=== PATIENT | female | born 1975 | race Caucasian/White ===

== ENCOUNTER 2019-02-25 17:31 | Emergency (ER) | payer MEDICAID ==
[2019-02-25 18:54] LABS: HCG,QUALITATIVE URINE POSITIVE (NEGATIVE)
[2019-02-25 19:00] LABS: SQUAMOUS EPITHIAL < 1 /hpf (0-5); URINE BILIRUBIN NEGATIVE (NEGATIVE); URINE BLOOD NEGATIVE (NEGATIVE); URINE CLARITY Clear (Clear); URINE COLOR Yellow (YELLOW); URINE GLUCOSE (UA) NORMAL (Normal); URINE LEUKOCYTE ESTERASE NEG Leu/uL (Negative); URINE PROTEIN NEGATIVE (NEGATIVE); URINE UROBILINOGEN NORMAL mg/dL (0.2-1.0)
[2019-02-25] MEDS ORDERED: Sodium Chloride 0.9% 1,000 ML IV ONE (19:09)
[2019-02-25 19:21] LABS: BASO % 0.5 % (0.0-2.0); EOS # 0.1 K/uL (0.0-0.7); HEMOGLOBIN 12.7 g/dL (11.0-16.0); LYMPH # 1.9 K/uL (1.0-4.3); LYMPH % 36.7 % (20.0-40.0); MEAN CELL VOLUME 85.5 fL (81.0-99.0); MEAN CORPUSCULAR HEMOGLOBIN 28.9 pg (27.0-31.0); MEAN CORPUSCULAR HGB CONC 33.7 g/dL (33.0-37.0); MEAN PLATELET VOLUME 9.7 fL (7.2-11.7); MONO # 0.3 K/uL (0.0-0.8); MONO % 6.2 % (0.0-10.0); NEUT # 2.8 K/uL (1.8-7.0); NEUT % 54.6 % (50.0-75.0); RBC 4.39 Mil/uL (3.80-5.20); RED CELL DISTRIBUTION WIDTH 13.2 % (11.5-14.5); WHITE BLOOD COUNT 5.1 K/uL (4.8-10.8)
[2019-02-25] MEDS ORDERED: Sodium Chloride 0.9% 1,000 ML ONE (19:23)
[2019-02-25 19:33] LABS: ALB/GLOB RATIO 1.8 (1.0-2.1); ALBUMIN 4.9 g/dL (3.5-5.0); ALT/SGPT 15 U/L (9-52); AST/SGOT 19 U/L (14-36); BLOOD UREA NITROGEN 14 mg/dL (7-17); CALCIUM 9.4 mg/dl (8.6-10.4); GFR NON-AFRICAN AMERICAN > 60; LIPASE 132 U/L (23-300)
--- NOTE | 2019-02-25 19:57 | C.PDOC ---
History Of Present Illness 43 year old female with PMHx of Hypothyroidism and sleep apnea presents to the ED complaining of vomiting for 6 days. Reports occasional diarrhea and 2 episodes of vomiting everyday. Denies any headache, fever, chills, chest pain, abdominal pain, back pain, or urinary symptoms. States she was diagnosed with H. pylori but has not been able to do the tests because of the vomiting. Time Seen by Provider: 02/25/19 18:47 Chief Complaint (Nursing): GI Problem History Per: Patient History/Exam Limitations: no limitations Onset/Duration Of Symptoms: Days Current Symptoms Are (Timing): Still Present Associated Symptoms: Nausea, Vomiting, Diarrhea. denies: Fever, Chills, Back Pain, Chest Pain, Urinary Symptoms Past Medical History Reviewed: Historical Data, Nursing Documentation, Vital Signs Vital Signs: Last Vital Signs Temp 97.8 F 02/25/19 17:35 Pulse 92 H 02/25/19 17:35 Resp 20 02/25/19 17:35 BP 111/70 02/25/19 17:35 Pulse Ox 10 L 02/25/19 17:35 - Medical History PMH: Hypothyroidism Surgical History: Family History: States: No Known Family Hx - Social History Hx Alcohol Use: No Hx Substance Use: No - Immunization History Hx Tetanus Toxoid Vaccination: No Hx Influenza Vaccination: Yes Hx Pneumococcal Vaccination: Yes Review Of Systems Except As Marked, All Systems Reviewed And Found Negative. Constitutional: Negative for: Fever, Chills Cardiovascular: Negative for: Chest Pain Respiratory: Negative for: Shortness of Breath Gastrointestinal: Positive for: Nausea, Vomiting, Diarrhea. Negative for: Abdominal Pain Genitourinary: Negative for: Dysuria, Hematuria Musculoskeletal: Negative for: Back Pain Neurological: Negative for: Headache Physical Exam - Physical Exam Appears: Non-toxic, No Acute Distress Skin: Warm, Dry, No Rash Head: Atraumatic Eye(s): bilateral: Normal Inspection Nose: Normal Oral Mucosa: Moist Neck: Supple Chest: Symmetrical Cardiovascular: Rhythm Regular Respiratory: Normal Breath Sounds, No Rales, No Rhonchi, No Wheezing Gastrointestinal/Abdominal: Soft, No Tenderness, No Distention, No Guarding, No Rebound Neurological/Psych: Oriented x3, Normal Speech Gait: Steady ED Course And Treatment - Laboratory Results Result Diagrams: 02/25/19 19:18 02/25/19 19:18 Lab Results: Total Bilirubin 0.2 mg/dL (0.2-1.3) 02/25/19 19:18 AST 19 U/L (14-36) 02/25/19 19:18 ALT 15 U/L (9-52) 02/25/19 19:18 Alkaline Phosphatase 49 U/L (38-126) 02/25/19 19:18 Total Protein 7.7 g/dL (6.3-8.3) 02/25/19 19:18 Albumin 4.9 g/dL (3.5-5.0) 02/25/19 19:18 Globulin 2.8 gm/dL (2.2-3.9) 02/25/19 19:18 Albumin/Globulin Ratio 1.8 (1.0-2.1) 02/25/19 19:18 Lipase 132 U/L (23-300) 02/25/19 19:18 Urine Color Yellow (YELLOW) 02/25/19 18:46 Urine Clarity Clear (Clear) 02/25/19 18:46 Urine pH 5.0 (5.0-8.0) 02/25/19 18:46 Ur Specific [place] 1.017 (1.003-1.030) 02/25/19 18:46 Urine Protein Negative mg/dL (NEGATIVE) 02/25/19 18:46 Urine Glucose (UA) Normal mg/dL (Normal) 02/25/19 18:46 Urine Ketones Negative mg/dL (NEGATIVE) 02/25/19 18:46 Urine Blood Negative (NEGATIVE) 02/25/19 18:46 Urine Nitrate Negative (NEGATIVE) 02/25/19 18:46 Urine Bilirubin Negative (NEGATIVE) 02/25/19 18:46 Urine Urobilinogen Normal mg/dL (0.2-1.0) 02/25/19 18:46 Ur Leukocyte Esterase Neg Manisha/uL (Negative) 02/25/19 18:46 Urine WBC (Auto) < 1 /hpf (0-5) 02/25/19 18:46 Ur Squamous Epith Cells < 1 /hpf (0-5) 02/25/19 18:46 Urine HCG, Qual Positive (NEGATIVE) 02/25/19 18:46 Urine HCG, Qual Positive (NEGATIVE) 02/25/19 18:46 O2 Sat by Pulse Oximetry: 10 Medical Decision Making Medical Decision Making: Plan - IV fluids - UA - HCG Urine - Bloodwork Disposition Counseled Patient/Family Regarding: Studies Performed, Diagnosis - Disposition Disposition: HOME/ ROUTINE Disposition Time: 20:28 Condition: STABLE Prescriptions: Ondansetron ODT [Zofran ODT] 4 mg PO TID #12 odt Instructions: Stomach Pain in Early Forms: [facility] (Sami), General Discharge Instructions - POA Present On Arrival: None - Clinical Impression Clinical Impression: Gastritis, Vomiting, First trimester - Scribe Statement The provider has reviewed the documentation as recorded by the Scribe Joy Navas All medical record entries made by the Scribe were at my direction and personally dictated by me. I have reviewed the chart and agree that the record accurately reflects my personal performance of the history, physical exam, medical decision making, and the department course for this patient. I have also personally directed, reviewed, and agree with the discharge instructions and disposition.
[2019-02-25 20:37] VITALS: BP 108/75; PULSE 72; RESP 18; TEMP 98.3; O2SAT 100
== END 2019-02-25 20:37 | disposition home or self-care (01) ==
LOC: C.ER 17:31
DX: O99.611 Diseases of the digestive system complicating pregnancy, first trimester (principal); K29.70 Gastritis, unspecified, without bleeding; O21.9 Vomiting of pregnancy, unspecified; Z3A.00 Weeks of gestation of pregnancy not specified
CPT/HCPCS: 80053; 81001; 83690; 84702; 84703; 85025; 96360; 99285; J7030

== ENCOUNTER 2019-03-30 16:13 | Emergency (ER) | payer MEDICAID ==
[2019-03-30 16:13] VITALS: BMI 35.2
--- NOTE | 2019-03-30 19:05 | C.PDOC ---
History Of Present Illness 43 year old female who is currently 11 weeks presents to the ED complaining of right foot and ankle pain and swelling status post tripping and falling. Reports she tripped and fell. Denies any LOC, head injury, nausea, vomiting, weakness, numbness, headache, or dizziness. Time Seen by Provider: 03/30/19 16:40 Chief Complaint (Nursing): Lower Extremity Problem/Injury History Per: Patient History/Exam Limitations: no limitations Onset/Duration Of Symptoms: Hrs Current Symptoms Are (Timing): Still Present - Ankle/Foot Description Of Injury: Fell Past Medical History Reviewed: Historical Data, Nursing Documentation, Vital Signs Vital Signs: Last Vital Signs Temp 98.9 F 03/30/19 16:22 Pulse 92 H 03/30/19 16:22 Resp 18 03/30/19 16:22 BP 116/83 03/30/19 16:22 Pulse Ox 100 03/30/19 16:22 Primary Care Provider: Non [facility] Provider, - Medical History PMH: Hypothyroidism Surgical History: Family History: States: No Known Family Hx - Social History Hx Alcohol Use: No Hx Substance Use: No - Immunization History Hx Tetanus Toxoid Vaccination: No Hx Influenza Vaccination: Yes Hx Pneumococcal Vaccination: Yes Review Of Systems Except As Marked, All Systems Reviewed And Found Negative. Constitutional: Negative for: Fever, Chills Gastrointestinal: Negative for: Nausea, Vomiting Musculoskeletal: Positive for: Foot Pain (right), Other (right ankle pain) Neurological: Negative for: Weakness, Numbness, Headache, Dizziness Physical Exam - Physical Exam Appears: Non-toxic, No Acute Distress Skin: Warm, Dry Head: Normacephalic Eye(s): bilateral: Normal Inspection Oral Mucosa: Moist Neck: Supple Chest: Symmetrical Cardiovascular: Rhythm Regular Respiratory: Normal Breath Sounds, No Rales, No Rhonchi, No Wheezing Extremity: Tenderness (tenderness to right lateral and medial malleolus and right foot ), No Calf Tenderness, Capillary Refill <2 Sec, No Deformity, Swelling (swelling to right lateral and medial malleolus and right foot ), No Other (ecchymosis ) Extremity: Bilateral: Normal Color And Temperature, Normal ROM Pulses: Left Dorsalis Pedis: Normal, Right Dorsalis Pedis: Normal Neurological/Psych: Oriented x3, Normal Speech, Normal Motor, Normal Sensation Gait: Steady ED Course And Treatment O2 Sat by Pulse Oximetry: 100 (RA) Pulse Ox Interpretation: Normal Progress Note: XR of right foot ordered. Spoke with Podiatry resident who reviewed X-ray and requested Ford dressing and crutches. Instructed patient to follow up with Podriatrist Clinic with Dr. Yoder on TuesdayApril 02 at 11:30am. Ford dressing applied by CP. Patient given crutches and instructed on how to use them. Disposition - Disposition Referrals: [facility] at [facility] [Outside] Rubi Yoder DPM [Staff Provider] - Disposition: HOME/ ROUTINE Disposition Time: 19:05 Condition: STABLE Additional Instructions: Follow up in Podiatry clinic on Tuesday, April 02, 2019 at 11:30 am. Make sure you let medical receptionist know that you were seen in ER on 03/30/2019 and Podiatry r esident was consulted and requested patient to be in the clinic at 11:30 am to be seen by . Instructions: Ankle Sprain (DC), Foot Sprain (DC) Forms: [employer] (Wolof) - Clinical Impression Clinical Impression: Strain of ankle and foot - PA / UNLEAVENED [employer] / Resident Statement MD/DO has reviewed & agrees with the documentation as recorded. - Scribe Statement The provider has reviewed the documentation as recorded by the Scribmelody Navas All medical record entries made by the Debra were at my direction and personally dictated by me. I have reviewed the chart and agree that the record accurately reflects my personal performance of the history, physical exam, medical decision making, and the department course for this patient. I have also personally directed, reviewed, and agree with the discharge instructions and disposition.
[2019-03-30 19:52] VITALS: BP 120/82; PULSE 95; RESP 16; TEMP 98.4
[2019-03-30 21:27] VITALS: O2SAT 100
--- NOTE | 2019-03-31 07:10 | RAD ---
Right ankle three views HISTORY: Fall. Comparison: None available. Findings: No evidence of acute displaced fracture or dislocation. Plantar and dorsal calcaneal spurring. Probable accessory ossicle adjacent to the cuboid bone. Impression: Degenerative changes. If pain persists, consider correlation with MRI.
== END 2019-03-30 19:54 | disposition home or self-care (01) ==
LOC: C.ER 16:13
DX: S96.911A Strain of unspecified muscle and tendon at ankle and foot level, right foot, initial encounter (principal); W01.0XXA Fall on same level from slipping, tripping and stumbling without subsequent striking against object, initial encounter